=== PATIENT | male | born 1935 | race Caucasian/White ===

== ENCOUNTER 2016-05-26 06:52 | Observation (INO) | payer OTHER, MEDICARE ==
[2016-05-26] MEDS ORDERED: LIDOCAINE 1% 5 ML SDV ONE (07:31)
--- NOTE | 2016-05-26 07:45 | GHP ---
[f rep st] PREOP HISTORY AND PHYSICAL DATE OF ADMISSION: 05/26/2016 ADMISSION DIAGNOSIS: Hematuria with bladder cancer. HISTORY OF PRESENT ILLNESS: This is an 81-year-old gentleman who has had gross hematuria and a recen t cystoscopy revealed that he had a recurrence of a bladder tumor, and he is admitted for TURBT. PAST MEDICAL HISTORY: Significant for gouty arthritis, hypertension, prostate cancer, renal cyst, co mpromised respiratory function, and bladder cancer. PREVIOUS SURGERY: Back surgery, radiation seed implant for prostate cancer and TURBT. MEDICATIONS: 1. Allopurinol. 2. Aspirin. 3. Cimetidine. 4. Furosemide. 5. Glipizide. 6. Glucosamine. 7. Hydralazine. 8. Metoprolol. 9. Pyridostigmine. 10. Prednisone. 11. Prazosin. 12. Spironolactone. 13. Uribel. 14. Warfarin. 15. Zocor. ALLERGIES: No known drug allergies. FAMILY HISTORY: Positive for prostate cancer, hypertension. SOCIAL HISTORY: Moderate alcohol consumption. Former smoker. REVIEW OF SYSTEMS: Negative. CONSTITUTIONAL: He does have shortness of breath and respiratory comp romise and obesity. PHYSICAL EXAM: VITAL SIGNS: In the office, his blood pressure is 162/80, heart rate 73, O2 saturati on on room air was 93%. EARS, EYES, NOSE AND THROAT: Normal. CHEST: Short inspiratory to expirato ry phase. No wheezes. HEART: Regular rate and rhythm. ABDOMEN: Obese. At the present time, he is admitted for TURBT. Indications, complications and option have been discu ssed. Written verbal consent has been obtained, and he is admitted for the above procedure. /[id number]/MODL
[2016-05-26 07:59] LABS: INR 2.24 (0.83-1.16)
[2016-05-26 08:00] LABS: APTT 38.1 SEC (23.0-38.0)
[2016-05-26] MEDS ORDERED: LR 1,000 ML IV ONE (08:06)
[2016-05-26] MEDS ORDERED: LIDOCAINE 1% 5 ML SDV ID PRN (08:06)
[2016-05-26] MEDS ORDERED: LIDOCAINE 2% JELLY 20 ML (UROJECT) ONE (08:26)
[2016-05-26] MEDS ORDERED: ceFAZolin 2 GM/DEXTROSE 100 ML IV ONE (08:30)
[2016-05-26] MEDS ORDERED: fentaNYL 100 MCG/2 ML INJ ONE (08:31)
[2016-05-26] MEDS ORDERED: ALBUMIN 5% 250 ML BOTTLE IV ONE (08:52)
[2016-05-26] MEDS ORDERED: PHENYLEPHRINE 10 MG/ML SDV ONE (08:52)
[2016-05-26] MEDS ORDERED: LIDOCAINE 2% 5 ML SDV ONE (08:52)
[2016-05-26] MEDS ORDERED: epHEDrine SULFATE 10 MG/ML SYR ONE (08:52)
[2016-05-26] MEDS ORDERED: GLYCOPYRROLATE 0.2 MG/1 ML VIAL ONE ×2 (08:52→09:16)
[2016-05-26] MEDS ORDERED: PROPOFOL 200 MG/20 ML VIAL ONE (08:59)
[2016-05-26] MEDS ORDERED: ONDANSETRON 4 MG/2 ML VIAL ONE (09:00)
[2016-05-26] MEDS ORDERED: ONDANSETRON DISINTEGRATING 4 MG TAB PO PRN (09:24)
[2016-05-26] MEDS ORDERED: ACETAMINOPHEN 325 MG TAB PO PRN (09:24)
[2016-05-26] MEDS ORDERED: ONDANSETRON 4 MG/2 ML VIAL IVP PRN (09:24)
--- NOTE | 2016-05-26 09:28 | POSTOPPROG ---
Post Op Note Date of Operation: 05/26/16 Surgeon: Yemi Marcial Anesthesiologist: Brenda Anesthesia: LMA Pre-op Diagnosis: bladder tumor Post-op Diagnosis: same Indication: same Procedure: turbt Findings: bladder tumors Inf/Abcess present in the surg proc area at time of surgery?: No EBL: Minimal Complications: none Drains: Other (arora) Specimen(s): none--dictated
[2016-05-26] MEDS ORDERED: D5W 1/2 NS 1,000 ML IV SCH (09:30)
--- NOTE | 2016-05-26 09:55 | GOP ---
[f rep st] OPERATIVE REPORT DATE OF OPERATION: 05/26/2016 SURGEON: Yemi Marcial MD PREOPERATIVE DIAGNOSIS: Recurrent bladder cancer. POSTOPERATIVE DIAGNOSIS: Recurrent bladder cancer. PROCEDURE PERFORMED: Resection/fulguration of bladder cancers, multiple. FINDINGS: DESCRIPTION OF PROCEDURE: After undergoing general anesthesia, was prepped and draped in normal ster ile fashion. After appropriate time-out, cystoscope was passed into his bladder. He had 1 lesion no miguel at the right side of the bladder neck that was fulgurated and resected. Then, he had multiple le sions in the dome of the right side of the bladder and because the size of him and the distance away, I elected not to resect because I was concerned it may perforate his bladder. They appeared to be s uperficial in nature, so I used a bipolar button and fulgurated them through their entirety and made sure there was no bleeding. At that point, we visualized the rest of the bladder, and there were no residual tumors identified using the 70 degree lens. At that point, the urethral catheter was passed . A 15 cc balloon inflated. He will be admitted for postoperative care with the idea that we will d ischarge him tomorrow if he has no significant postoperative issues. Specimen was not sent because o f the nature described above. COMPLICATIONS: None. DRAINS: Branch catheter. /[id number]/MODL
[2016-05-26] MEDS: PYRIDOSTIGMINE BROMIDE 60 MG TAB PO SCH ×3 (13:41→21:21)
[2016-05-26] MEDS ORDERED: FAMOTIDINE 20 MG TAB PO SCH (21:00)
[2016-05-26] MEDS ORDERED: CIMETIDINE 400 MG PO SCH (21:00)
[2016-05-26] MEDS: PRESERVISION AREDS 2 EYE VITAMIN 1 EACH PO SCH (21:21)
[2016-05-26] MEDS: FUROSEMIDE 40 MG TAB PO SCH (21:23)
[2016-05-27] MEDS: PYRIDOSTIGMINE BROMIDE 60 MG TAB PO SCH ×2 (05:58→12:44)
[2016-05-27] MEDS ORDERED: ALLOPURINOL 100 MG TAB PO SCH (08:00)
[2016-05-27] MEDS ORDERED: METOPROLOL TARTRATE 25 MG TAB PO SCH (08:00)
[2016-05-27] MEDS ORDERED: SPIRONOLACTONE 25 MG TAB PO SCH (08:00)
[2016-05-27 08:37] VITALS: BP 172/87; PULSE 66; RESP 16; TEMP 98; O2SAT 99
--- NOTE | 2016-05-27 08:38 | SOAPPROG ---
SOAP Progress Note Assessment/Plan: Assessment: Bladder cancer Acute POD 1, path pending and plan for DC Plan: DC home 05/27/16 08:37 Subjective: no complaints Objective: Vital Signs Temp Pulse Resp BP Pulse Ox 36.6 C 66 16 172/87 H 99 05/27/16 08:00 05/27/16 08:00 05/27/16 08:00 05/27/16 08:00 05/27/16 08:00 05/26/16 05/27/16 05/28/16 05:59 05:59 05:59 Intake Total 2400 830 Output Total 1200 475 Balance 1200 355 PT 25.0 SEC (12.0-15.0) H 05/26/16 07:35 INR 2.24 (0.83-1.16) H 05/26/16 07:35 Physical Exam - Physical Exam General Appearance: alert Respiratory: No respiratory distress Abdomen: soft Neuro/Psych: alert, oriented x 3 ICD10 Worksheet Patient Problems: Problems Problem Status Diagnosed Bladder cancer Acute Bladder spasm Acute Hematuria Acute Urinary retention Acute Urinary tract infection Acute ERASMO (acute kidney injury) Acute Acute hypoxemic respiratory failure Acute BPH (benign prostatic hyperplasia) Acute CKD (chronic kidney disease) Acute Pneumonia Acute - ICD10 Problem Qualifiers (1) Bladder cancer
[2016-05-27] MEDS: FUROSEMIDE 40 MG TAB PO SCH (08:53)
[2016-05-27] MEDS: PRESERVISION AREDS 2 EYE VITAMIN 1 EACH PO SCH (08:53)
[2016-05-27] MEDS ORDERED: Herbals/Supplements -Info Only PO SCH (09:00)
[2016-05-27] MEDS ORDERED: DOCUSATE SODIUM 100 MG CAP PO SCH (09:00)
[2016-05-27] MEDS ORDERED: MULTIVITAMINS 1 EACH TAB PO SCH (09:00)
[2016-05-27] MEDS ORDERED: ASCORBIC ACID 500 MG TAB PO SCH (09:00)
[2016-05-27] MEDS ORDERED: FERROUS SULFATE 325 MG TAB PO SCH (09:00)
[2016-05-27] MEDS ORDERED: CALCIUM CARB W/VIT D 500 MG TAB PO SCH (09:00)
[2016-05-27] MEDS ORDERED: PRAZOSIN HCL 1 MG CAP PO SCH (09:00)
[2016-05-27] MEDS ORDERED: predniSONE 5 MG TAB PO SCH (09:00)
[2016-05-27] MEDS ORDERED: ASPIRIN 325 MG TAB PO SCH (09:22)
[2016-05-27] MEDS ORDERED: ATORVASTATIN CALCIUM 10 MG TAB PO SCH (21:00)
== END 2016-05-27 12:30 | disposition home or self-care (01) ==
LOC: F3E 06:52 → F1N 13:03
PROVIDERS: ADMIT Specialist; ATTEND Specialist
PROC: 0T5C8ZZ Destruction of Bladder Neck, Via Natural or Artificial Opening Endoscopic (ICD-10-PCS; 2016-05-26)
PROC: 0T5B8ZZ Destruction of Bladder, Via Natural or Artificial Opening Endoscopic (ICD-10-PCS; principal; 2016-05-26 08:30)
DX: C67.9 Malignant neoplasm of bladder, unspecified (principal); R31.0 Gross hematuria; C61 Malignant neoplasm of prostate; N40.1 Benign prostatic hyperplasia with lower urinary tract symptoms; J98.9 Respiratory disorder, unspecified; M10.9 Gout, unspecified; I10 Essential (primary) hypertension; N28.1 Cyst of kidney, acquired; I25.10 Atherosclerotic heart disease of native coronary artery without angina pectoris; I48.91 Unspecified atrial fibrillation; E66.01 Morbid (severe) obesity due to excess calories; Z68.37 Body mass index [BMI] 37.0-37.9, adult; Z87.891 Personal history of nicotine dependence; Z79.01 Long term (current) use of anticoagulants
CPT/HCPCS: 52235; J0690; J2405; J2704; J3010; P9041; J2370

== ENCOUNTER 2016-05-28 11:16 | Inpatient (IN) | payer OTHER, MEDICARE ==
--- NOTE | 2016-05-28 11:22 | EDPHY ---
H & P Time Seen by Provider: 05/28/16 11:22 HPI/ROS: CHIEF COMPLAINT: Cough and short of breath HISTORY OF PRESENT ILLNESS: This 81-year-old man just had urologic surgery was discharged yesterday but started having a cough and shortness of breath yesterday at 6:00 p.m.. He was up all night because of coughing today feels like he can't get a deep breath and can barely move or walk because he feels like he can't get enough oxygen. This is not associated with chest pain or fever. No hemoptysis or sputum production. No leg pain or leg swelling. REVIEW OF SYSTEMS: Eye: no change in vision ENT: no sore throat Cardiac: No palpitations or syncope. Pulmonary: HPI Abdomen: no vomiting, diarrhea, abdominal pain, umbilical hernia which is unchanged. Musculoskeletal: Chronic back pain which is worse, but without weakness or numbness in extremities. Skin: no rash Neuro: no headache Constitutional: no fever : no urinary symptoms A comprehensive 10 point review of systems is otherwise negative aside from elements mentioned in the history of present illness. PAST MEDICAL HISTORY: Includes prostate cancer, hyperlipidemia, atrial fibrillation Social history: Here with family. Nonsmoker. General Appearance: Alert and conversant, cooperative. Eyes: No scleral icterus. ENT, Mouth: Normal mucous membranes. Respiratory: Decreased breath sounds, very faint wheezing. Appears mildly tachypneic. Cardiovascular: Irregular rate and rhythm. Gastrointestinal: Abdomen is soft and non tender. Soft reducible umbilical hernia. Neurological: Alert and oriented x3. Normally conversant. Face symmetric, able to move and feel all extremities but generally very weak. Skin: Warm and dry, no rashes. Musculoskeletal: No peripheral edema and no joint swelling. Psychiatric: Not agitated. Emergency Department course/MDM: Chest x-ray, influenza, DuoNeb. The patient will likely need to be readmitted because of how debilitated he is despite negative influenza testing. He has trouble sitting up in bed without assistance. He was able to get up with assistance and go to the bathroom but is very debilitated. Unsteady on his feet. His chest sounds a little bit better after the nebulizer treatment. Discussed with Abhishek at 1410 for admission, dyspnea and URI, admit for supportive care. At this point I think that an acute bacterial infection is unlikely. INR is 1.67. Pulmonary embolism is considered, but with cough and wheezing I think viral upper respiratory infection is much more likely. Smoking Status: Former smoker Constitutional: Initial Vital Signs Temperature (C) 37.4 C 05/28/16 11:25 Heart Rate 69 05/28/16 11:25 Respiratory Rate 20 05/28/16 11:25 Blood Pressure 171/97 H 05/28/16 11:25 O2 Sat (%) 93 05/28/16 11:25 O2 Delivery Mode Room Air O2 (L/minute) 2 Allergies/Adverse Reactions: No Known Allergies Allergy (Verified 05/18/16 10:13) Home Medications: Medication Instructions Recorded Aspirin [Aspirin 325 mg (*)] 325 mg PO MOWEFR 02/19/15 Calcium Carb W/Vit D [Calcium Carb 500 mg PO DAILY 02/19/15 W/Vit D 500/200 (*)] Cimetidine 400 mg PO HS 02/19/15 Furosemide [Lasix 40 MG (*)] 40 mg PO BID 02/19/15 Multivitamins [Multivitamin (*)] 1 each PO DAILY 02/19/15 Prazosin HCl [Minipress 1mg (*)] 2 mg PO DAILY 02/19/15 Pyridostigmine [place] [Mestinon 60 mg PO QID 02/19/15 60mg (*)] Simvastatin [Zocor] 20 mg PO HS 02/19/15 Spironolactone [Aldactone 25 MG 25 mg PO DAILY@08 02/19/15 (*)] Allopurinol [Allopurinol 100 MG 100 mg PO DAILY@03/17/16 (*)] Ascorbic Acid [Vitamin C 500 mg 500 mg PO DAILY 03/17/16 (*)] Docusate Sodium [Colace 100 MG (*)] 100 mg PO DAILY 03/17/16 Ferrous Sulfate [Ferrous Sulf 325 325 mg PO DAILY 03/17/16 MG (*)] Herbals/Supplements -Info Only 1 ea PO DAILY #0 03/17/16 Metoprolol Tartrate [Lopressor 25 25 mg PO DAILY@03/17/16 mg (*)] hydrALAZINE [Apresoline 50 mg (*)] 50 mg PO TID 03/17/16 predniSONE 5 mg PO DAILY 03/17/16 C/E/Zn/Cu/OM3/DHA/EPA/LUT/ZEAX 1 each PO BID 05/11/16 [Preservision Areds 2 Softgel] Medical Decision Making - Diagnostics EKG Interpretation: 12-lead EKG interpreted by me; official reading is in trace master. My interpretation is sinus rhythm at rate 54, no acute ischemic changes. Imaging: Lumbar spine x-ray viewed independently by myself is negative for acute fracture other injury. Chest x-ray viewed independently by myself shows cardiomegaly without failure or infiltrates. Differential Diagnosis: Differential diagnosis considered for shortness of breath including but not limited to pulmonary infectious process, COPD, asthma, pulmonary embolus and congestive heart failure. - Data Points Laboratory Results: Laboratory Results 05/28/16 11:30 05/28/16 11:30 05/28/16 05/28/16 11:44 11:30 WBC 10.27 H 10^3/uL (3.80-9.50) RBC 4.68 10^6/uL (4.40-6.38) Hgb 12.4 L g/dL (13.7-17.5) Hct 39.2 L % (40.0-51.0) MCV 83.8 fL (81.5-99.8) MCH 26.5 L pg (27.9-34.1) MCHC 31.6 L g/dL (32.4-36.7) RDW 16.1 H % (11.5-15.2) Plt Count 180 10^3/uL (150-400) MPV 11.7 fL (8.7-11.7) Neut % (Auto) 81.1 H % (39.3-74.2) Lymph % (Auto) 5.1 L % (15.0-45.0) Bibb % (Auto) 10.1 % (4.5-13.0) Eos % (Auto) 2.7 % (0.6-7.6) Baso % (Auto) 0.4 % (0.3-1.7) Nucleat RBC Rel Count 0.0 % (0.0-0.2) Absolute Neuts (auto) 8.33 H 10^3/uL (1.70-6.50) Absolute Lymphs (auto) 0.52 L 10^3/uL (1.00-3.00) Absolute Monos (auto) 1.04 H 10^3/uL (0.30-0.80) Absolute Eos (auto) 0.28 10^3/uL (0.03-0.40) Absolute Basos (auto) 0.04 10^3/uL (0.02-0.10) Absolute Nucleated RBC 0.00 10^3/uL (0-0.01) Immature Gran % 0.6 % (0.0-1.1) Immature Gran # 0.06 10^3/uL (0.00-0.10) PT 19.6 H SEC (12.0-15.0) INR 1.65 H (0.83-1.16) Sodium 140 mEq/L (134-144) Potassium 4.8 mEq/L (3.5-5.2) Chloride 100 mEq/L (97-110) Carbon Dioxide 30 mEq/l (22-31) Anion Gap 10 mEq/L (8-16) BUN 55 H mg/dL (7-23) Creatinine 2.8 H mg/dL (0.7-1.3) Estimated GFR 22 Glucose 87 mg/dL (70-100) Calcium 9.6 mg/dL (8.5-10.4) Troponin I 0.025 ng/mL (0-0.034) NT-Pro-B Natriuret Pep 845 H pg/mL (0-450) Influenza Typ A,B (DFA) NEGATIVE FOR FLU (NEGATIVE) Medications Given: Discontinued Medications Albuterol/Ipratropium (Duoneb) 3 ml IH EDNOW ONE Stop: 05/28/16 12:20 Last Admin: 05/28/16 12:35 Dose: 3 ml Departure - Departure Disposition: [facility] Inpatient Acute Clinical Impression: Cough Dyspnea Qualifiers: Dyspnea type: unspecified Qualifier Code: (R06.00) Dyspnea, unspecified Condition: Good
[2016-05-28 11:46] LABS: % IMMATURE GRANULYOCYTES 0.6 % (0.0-1.1); ABSOLUTE IMMATURE GRANULOCYTES 0.06 10^3/uL (0.00-0.10); ADD DIFF? NO; ADD MORPH? NO; ADD SCAN? NO; ATYPICAL LYMPHOCYTE FLAG 0 (0-99); FRAGMENT RBC FLAG 0 (0-99); HEMATOCRIT 39.2 % (40.0-51.0); HEMOGLOBIN 12.4 g/dL (13.7-17.5); LEFT SHIFT FLG 0 (0-99); LIPEMIA HEMOLYSIS FLAG 80 (0-99); MEAN CELL HEMOGLOBIN 26.5 pg (27.9-34.1); MEAN CELL HEMOGLOBIN CONCENTR. 31.6 g/dL (32.4-36.7); MEAN CELL VOLUME 83.8 fL (81.5-99.8); MEAN PLATELET VOLUME 11.7 fL (8.7-11.7); PLATELET CLUMPS FLAG 10 (0-99); PLATELET COUNT 180 10^3/uL (150-400); RED BLOOD CELL COUNT 4.68 10^6/uL (4.40-6.38); RED CELL DISTRIBUTION WIDTH 16.1 % (11.5-15.2)
[2016-05-28 11:53] LABS: ANION GAP 10 mEq/L (8-16); CALCIUM 9.6 mg/dL (8.5-10.4); CARBON DIOXIDE 30 mEq/l (22-31); CHLORIDE 100 mEq/L (97-110); CREATININE 2.8 mg/dL (0.7-1.3); GLOMERULAR FILTRATION RATE 22; GLUCOSE 87 mg/dL (70-100); POTASSIUM 4.8 mEq/L (3.5-5.2); SODIUM 140 mEq/L (134-144)
[2016-05-28] MEDS ORDERED: IPRATROPIUM/ALBUTEROL 3 ML DEYVIAL IH ONE (12:19)
--- NOTE | 2016-05-28 12:29 | DX ---
PA and Lateral Chest Clinical Indications: Shortness of breath in an 81-year-old male. Comparison: PA and lateral chest and CT scan of the Chest February 26, 2015. Findings: No focal pulmonary consolidation is identified. Peribronchial thickening is seen. There is hyperexpansion seen with flattening of the hemidiaphragms noted. Prominent pericardial fat pads are seen bilaterally. The heart is mildly enlarged. Pulmonary vascular ity is normal. No pleural effusions are seen. Pleural surfaces and bony thorax are negative for acut e abnormality. Spinal degenerative changes are stable. Impression: 1. Suspect COPD/chronic bronchitis. 2. Probable low-grade congestive heart failure without pulmonary edema.
[2016-05-28 12:37] LABS: INR 1.65 (0.83-1.16); PROTIME(PATIENT) 19.6 SEC (12.0-15.0)
[2016-05-28 12:55] LABS: TROPONIN I 0.025 ng/mL (0-0.034)
--- NOTE | 2016-05-28 14:17 | CPEKG ---
Heart Rate: 54 RR Interval: 1111 P-R Interval: 128 QRSD Interval: 76 QT Interval: 424 QTC Interval: 402 P [place]: 36 QRS [place]: 24 T Wave [place]: 50 EKG Severity - NORMAL ECG - EKG Impression: SINUS RHYTHM Electronically Signed By: Edmond Adan 28-May-2016 16:11:30
--- NOTE | 2016-05-28 14:18 | DX ---
Lumbar Spine (AP and Lateral) Clinical Indications: Back pain in an 81-year-old male; comparison to the prior study October 16, 2014. Findings: Alignment is normal and no fractures are seen. Multilevel degenerative changes are noted w ith disk space loss and bony hypertrophic changes seen throughout the lumbar spine. Degenerative butler ges are also seen in the lower thoracic region. Abnormalities are stable in appearance. Aortic calcif ication is seen without aneurysmal dilatation. Implanted seeds are noted in the prostate bed. Impression: 1. Multilevel lumbar spinal degenerative changes are seen. 2. See above report for additional findings.
[2016-05-28] MEDS ORDERED: ONDANSETRON 4 MG/2 ML VIAL IVP PRN (14:44)
[2016-05-28] MEDS ORDERED: ONDANSETRON DISINTEGRATING 4 MG TAB PO PRN (14:44)
[2016-05-28] MEDS ORDERED: oxyCODONE IR 5 MG TAB PO PRN (14:44)
[2016-05-28] MEDS ORDERED: IPRATROPIUM/ALBUTEROL 3 ML DEYVIAL IH PRN (14:48)
--- NOTE | 2016-05-28 15:53 | GHP ---
[f rep st] HISTORY AND PHYSICAL DATE OF ADMISSION: 05/28/2016 HISTORY OF PRESENT ILLNESS: The patient is a pleasant 81-year-old gentleman who had a transurethral resection of bladder tumor performed on the of this month by Dr. Yemi Marcial. He was discharged on postoperative day #1, feeling well. Last night, he began to develop low back pain, as well as a dry cough. He has had no fever or chills. He has no pleuritic pain. He has no history of VTE. He takes Coumadin, but it was for stroke prophylaxis for atrial fibrillation, but it has been discontinued. He has had a bowel movement since surgery. He feels in general weak with shortness of breath and dyspnea on exertion, as well as low back pain. He has not had fecal or urinary incontinence. He has not had chest pain. He does not have a history of angina. He has a low appetite, but has been drinking fluids okay. REVIEW OF SYSTEMS: A complete 10-point review of systems was conducted and was negative, except as noted in the HPI. PAST MEDICAL HISTORY: 1. Atrial fibrillation on chronic Coumadin. 2. History of bladder tumor. 3. Morbid obesity. 4. Chronic kidney disease with baseline creatinine in the mid 2s. 5. Diabetes. 6. Anemia. 7. Suspected myasthenia gravis. 8. Hematuria urinary retention secondary to bladder tumors. ALLERGIES: No known drug allergies. MEDICATIONS: Preliminary home medications list includes prednisone 5 daily, hydralazine 50 t.i.d., spironolactone 20 daily, simvastatin, Mestinon, prazosin , multivitamin, metoprolol, Lasix, iron sulfate, docusate, calcium carbonate, aspirin, ascorbic acid, and allopurinol. SOCIAL HISTORY: He quit smoking more than 60 years ago. His and children are present at the bedside. No tobacco. Minimal alcohol. FAMILY HISTORY: His children are healthy. PHYSICAL EXAM: VITAL SIGNS: Temperature 37.4, blood pressure 171/97, pulse 69 , breathing 20 times a minute, 93% on room air. GENERAL: In no acute distress. Obese. HEENT: Sclerae are anicteric. Oropharynx is clear. Mucous membranes are moist. NECK: Supple without lymphadenopathy or JVD. LUNGS: Clear to auscultation with scattered expiratory wheezes with good air movement. HEART: S1, S2. Bradycardic. ABDOMEN: Soft, obese, nontender, nondistended. EXTREMITIES: Lower extremities show trace edema bilaterally. Calves are nontender. SKIN: Without rash. NEUROLOGIC: Exam shows negative straight leg raises bilaterally. Dorsiflexion and plantarflexion are 5/5 bilaterally. SKIN: Without rash. LABS: White count 10.3 (which is down from 11), hematocrit 39 (baseline), platelets 180. INR is 1.65. Sodium 140, potassium 4.8, chloride 100, bicarb 30, BUN 55, creatinine 2.8, glucose 87. Troponin 0.025, which is about where he lives. BNP is 845, also similar for him. His influenza is negative. Chest x-ray, interpreted by me, shows poor quality film with no focal infiltrate. Lumbar spine film shows multilevel degenerative changes. EKG, interpreted by me, shows sinus bradycardia at 54 with normal axis and intervals and no ST or T-wave changes. I have discussed the case with Dr. Edmond Adan in the Emergency Department. ASSESSMENT AND PLAN: This is an 81-year-old gentleman who comes in with generalized weakness and cough and shortness of breath, postoperative day #2 from transurethral resection of bladder tumor. 1. Weakness. I suspect this is multifactorial, largely driven by the one/two combination of surgery and a viral illness. I will have PT and OT see him. I think the patient is not significantly anemic. This does not appear to be on acute coronary syndrome. 2. Shortness of breath. The patient has an elevated creatinine, making scanning for pulmonary embolism not safe at this point in time. This does not seem really like a pulmonary embolism. The patient has wheezes and upper respiratory infection symptoms. Warfarin will be restarted. He is not tachycardic. I will go ahead and provide him with Mucinex and DuoNeb. Antibiotics are not indicated. 3. Indeterminate troponin of recent surgery. We will cycle his troponins. His EKG does not have ischemic changes. 4. Back pain. He has no neurologic signs, no fever. We will follow. I will have PT and OT see him. He had a film, but I will not perform an MRI at this time. 5. Prophylaxis. He has been started on warfarin. Will follow his INR daily. DISPOSITION: Inpatient status. /[id number]/MODL MTDD
[2016-05-28] MEDS: ACETAMINOPHEN 500 MG TAB PO SCH ×2 (16:09→20:24)
[2016-05-28] MEDS: guaiFENesin 600 MG TAB.ER PO SCH ×2 (16:10→20:24)
[2016-05-28] MEDS: PYRIDOSTIGMINE BROMIDE 60 MG TAB PO SCH ×2 (17:37→20:24)
[2016-05-28] MEDS: FAMOTIDINE 20 MG TAB PO SCH (20:24)
[2016-05-28] MEDS: PRESERVISION AREDS 2 EYE VITAMIN 1 EACH PO SCH (20:24)
[2016-05-28] MEDS: PRAZOSIN HCL 1 MG CAP PO SCH (20:24)
[2016-05-28] MEDS: ATORVASTATIN CALCIUM 10 MG TAB PO SCH (20:24)
[2016-05-29 05:06] LABS: % IMMATURE GRANULYOCYTES 0.4 % (0.0-1.1); ABSOLUTE IMMATURE GRANULOCYTES 0.03 10^3/uL (0.00-0.10); ADD DIFF? NO; ADD MORPH? NO; ADD SCAN? NO; ATYPICAL LYMPHOCYTE FLAG 10 (0-99); FRAGMENT RBC FLAG 20 (0-99); HEMATOCRIT 36.1 % (40.0-51.0); HEMOGLOBIN 11.3 g/dL (13.7-17.5); LEFT SHIFT FLG 0 (0-99); LIPEMIA HEMOLYSIS FLAG 80 (0-99); MEAN CELL HEMOGLOBIN 26.1 pg (27.9-34.1); MEAN CELL HEMOGLOBIN CONCENTR. 31.3 g/dL (32.4-36.7); MEAN CELL VOLUME 83.4 fL (81.5-99.8); MEAN PLATELET VOLUME 11.7 fL (8.7-11.7); PLATELET CLUMPS FLAG 10 (0-99); PLATELET COUNT 181 10^3/uL (150-400); RED BLOOD CELL COUNT 4.33 10^6/uL (4.40-6.38); RED CELL DISTRIBUTION WIDTH 16.1 % (11.5-15.2)
[2016-05-29 05:17] LABS: INR 1.43 (0.83-1.16); PROTIME(PATIENT) 17.4 SEC (12.0-15.0)
[2016-05-29 05:25] LABS: ANION GAP 11 mEq/L (8-16); CALCIUM 8.8 mg/dL (8.5-10.4); CARBON DIOXIDE 25 mEq/l (22-31); CHLORIDE 100 mEq/L (97-110); CREATININE 2.9 mg/dL (0.7-1.3); GLOMERULAR FILTRATION RATE 21; GLUCOSE 77 mg/dL (70-100); POTASSIUM 4.3 mEq/L (3.5-5.2); SODIUM 136 mEq/L (134-144)
[2016-05-29] MEDS: PYRIDOSTIGMINE BROMIDE 60 MG TAB PO SCH ×4 (08:31→21:22)
[2016-05-29] MEDS: guaiFENesin 600 MG TAB.ER PO SCH ×2 (08:31→21:21)
[2016-05-29] MEDS: MULTIVITAMINS 1 EACH TAB PO SCH (08:31)
[2016-05-29] MEDS: DOCUSATE SODIUM 100 MG CAP PO SCH (08:31)
[2016-05-29] MEDS: PRESERVISION AREDS 2 EYE VITAMIN 1 EACH PO SCH ×2 (08:31→21:21)
[2016-05-29] MEDS: CALCIUM CARB W/VIT D 500 MG TAB PO SCH (08:32)
[2016-05-29] MEDS: ALLOPURINOL 100 MG TAB PO SCH (08:32)
[2016-05-29] MEDS: ASCORBIC ACID 500 MG TAB PO SCH (08:32)
[2016-05-29] MEDS: FERROUS SULFATE 325 MG TAB PO SCH (08:32)
[2016-05-29] MEDS: predniSONE 5 MG TAB PO SCH (08:32)
[2016-05-29] MEDS: METOPROLOL TARTRATE 25 MG TAB PO SCH (08:32)
[2016-05-29] MEDS ORDERED: Herbals/Supplements -Info Only PO SCH (09:00)
--- NOTE | 2016-05-29 13:56 | HOSPPROG ---
Hospitalist Progress Note Assessment/Plan: Patient is an 81-year-old gentleman who had a recent transurethral resection was bladder tumor performed on May [address] Marcial. He was feeling well on discharge. Last night he developed low back pain as well as a dry cough he had no fever chills he was admitted for further care. Today is my 1st encounter with the patient. Chart reviewed. #. Weakness * most likely secondary to recent surgery * hemoglobin hematocrit are stable * physical therapy and occupational therapy have seen patient/ recommending home care #. chronic kidney disease * creatinine 2.9/this is close to his baseline #. atrial fibrillation * Coumadin had been discontinued due to recent surgery * patient had surgery on the /last time the urologist's held his anticoagulation for 5 days * will resume Coumadin tomorrow #. diabetes * glucose is stable # shortness of breath with associated cough * slightly increase in troponin this afternoon but does not indicate any type of ischemia * patient is on diuretics will resume these * placed on scheduled duo nebs * chest x-ray does not show any focal infiltrate #. constipation * will add bowel protocol #. back pain / x-ray shows nothing acute * is on scheduled Tylenol * Lidoderm patch initiated * it is likely secondary to arthritis in his back #. Dvt prophylaxis: Heparin tid Subjective: patient is complaining of ongoing shortness of breath. His other complaint is a dry hacking cough. Objective: Vital Signs Temp Pulse Resp BP Pulse Ox 36.9 C 53 L 16 143/78 H 92 05/29/16 11:01 05/29/16 11:01 05/29/16 11:01 05/29/16 11:01 05/29/16 11:01 Laboratory Results 05/29/16 04:17 05/29/16 04:17 PT 17.4 SEC (12.0-15.0) H 05/29/16 04:17 INR 1.43 (0.83-1.16) H 05/29/16 04:17 - Physical Exam Constitutional: chronically ill appearing, obese, uncomfortable, No not in pain (back) Ears, Nose, Mouth, Throat: hard of hearing Cardiovascular: regular rate and rhythym Respiratory: no respiratory distress, reduced air movement ( bibasilar) Gastrointestinal: other ( abdomen large and round) Skin: warm Musculoskeletal: generalized weakness Neurologic: AAOx3 Psychiatric: interacting appropriately ICD10 Worksheet Patient Problems: Problems Problem Status Diagnosed Bladder spasm Acute Cough Acute Dyspnea Acute Hematuria Acute Urinary retention Acute Urinary tract infection Acute ERASMO (acute kidney injury) Acute Acute hypoxemic respiratory failure Acute BPH (benign prostatic hyperplasia) Acute Bladder cancer Acute CKD (chronic kidney disease) Acute Pneumonia Acute
[2016-05-29] MEDS: ACETAMINOPHEN 500 MG TAB PO SCH ×3 (15:04→21:21)
[2016-05-29] MEDS: LIDOCAINE 5% 1 EA PATCH TD SCH (15:07)
[2016-05-29] MEDS ORDERED: BISACODYL 10 MG SUPP PR PRN (15:44)
[2016-05-29] MEDS ORDERED: LACTULOSE 20 GM/30 ML UDCUP PO PRN (15:44)
[2016-05-29] MEDS ORDERED: IPRATROPIUM/ALBUTEROL 3 ML DEYVIAL ONE (15:52)
[2016-05-29] MEDS: IPRATROPIUM/ALBUTEROL 3 ML DEYVIAL IH SCH ×2 (15:58→23:55)
[2016-05-29] MEDS: POLYETHYLENE GLYCOL 3350 17 GM PKT PO SCH (17:40)
[2016-05-29] MEDS: FUROSEMIDE 40 MG TAB PO SCH ×2 (17:40→21:21)
[2016-05-29] MEDS: PRAZOSIN HCL 1 MG CAP PO SCH (21:21)
[2016-05-29] MEDS: ATORVASTATIN CALCIUM 10 MG TAB PO SCH (21:21)
[2016-05-29] MEDS: HEPARIN 5,000 UNIT/0.5 ML SYR SC SCH (21:21)
[2016-05-29] MEDS: SENNOSIDES/DOCUSATE SODIUM TAB PO SCH (21:22)
[2016-05-29] MEDS: FAMOTIDINE 20 MG TAB PO SCH (21:22)
[2016-05-30 05:26] LABS: ANION GAP 12 mEq/L (8-16); CALCIUM 9.2 mg/dL (8.5-10.4); CARBON DIOXIDE 26 mEq/l (22-31); CHLORIDE 99 mEq/L (97-110); CREATININE 2.7 mg/dL (0.7-1.3); GLOMERULAR FILTRATION RATE 23; GLUCOSE 89 mg/dL (70-100); POTASSIUM 4.2 mEq/L (3.5-5.2); SODIUM 137 mEq/L (134-144)
[2016-05-30] MEDS: ACETAMINOPHEN 500 MG TAB PO SCH ×3 (06:05→21:58)
[2016-05-30] MEDS: HEPARIN 5,000 UNIT/0.5 ML SYR SC SCH ×2 (06:06→14:57)
[2016-05-30] MEDS: IPRATROPIUM/ALBUTEROL 3 ML DEYVIAL IH SCH ×4 (06:17→22:09)
[2016-05-30] MEDS: LIDOCAINE 5% 1 EA PATCH TD SCH (09:17)
[2016-05-30] MEDS: METOPROLOL TARTRATE 25 MG TAB PO SCH (09:18)
[2016-05-30] MEDS: POLYETHYLENE GLYCOL 3350 17 GM PKT PO SCH (09:18)
[2016-05-30] MEDS: CALCIUM CARB W/VIT D 500 MG TAB PO SCH (09:19)
[2016-05-30] MEDS: DOCUSATE SODIUM 100 MG CAP PO SCH (09:19)
[2016-05-30] MEDS: PRESERVISION AREDS 2 EYE VITAMIN 1 EACH PO SCH ×2 (09:19→21:57)
[2016-05-30] MEDS: PYRIDOSTIGMINE BROMIDE 60 MG TAB PO SCH ×4 (09:19→21:57)
[2016-05-30] MEDS: SENNOSIDES/DOCUSATE SODIUM TAB PO SCH ×2 (09:19→21:57)
[2016-05-30] MEDS: MULTIVITAMINS 1 EACH TAB PO SCH (09:19)
[2016-05-30] MEDS: SPIRONOLACTONE 25 MG TAB PO SCH (09:20)
[2016-05-30] MEDS: FUROSEMIDE 40 MG TAB PO SCH ×2 (09:20→14:54)
[2016-05-30] MEDS: guaiFENesin 600 MG TAB.ER PO SCH ×2 (09:20→21:58)
[2016-05-30] MEDS: ASCORBIC ACID 500 MG TAB PO SCH (09:20)
[2016-05-30] MEDS: FERROUS SULFATE 325 MG TAB PO SCH (09:20)
[2016-05-30] MEDS: predniSONE 5 MG TAB PO SCH (09:20)
[2016-05-30] MEDS: ALLOPURINOL 100 MG TAB PO SCH (09:20)
--- NOTE | 2016-05-30 12:10 | HOSPPROG ---
Hospitalist Progress Note Assessment/Plan: Patient is an 81-year-old gentleman who had a recent transurethral resection was bladder tumor performed on May [address] Marcial. He was feeling well on discharge. Last night he developed low back pain as well as a dry cough he had no fever chills he was admitted for further care. #. Weakness * most likely secondary to recent surgery * hemoglobin hematocrit are stable * physical therapy and occupational therapy have seen patient/ recommending home care #. chronic kidney disease * creatinine 2.7/this is close to his baseline #. atrial fibrillation * Coumadin had been discontinued due to recent surgery * patient had surgery on the /last time the urologist's held his anticoagulation for 5 days * will resume Coumadin soon/RN to verify with Dr Marcial's office #. diabetes * glucose is stable # shortness of breath with associated cough * slightly increase in troponin * placed on scheduled duo nebs * chest x-ray does not show any focal infiltrate #. constipation * will add bowel protocol #. back pain / x-ray shows nothing acute * is on scheduled Tylenol * Lidoderm patch initiated * it is likely secondary to arthritis in his back * Jamir says this is much better today #. Dvt prophylaxis: Heparin tid #. Plan: Jamir says he is tired, feeling poorly, has no energy/ told him I would re-evaluate him later today. Subjective: Jamir is feeling more fatigued, has no energy today/ appetite is poorer than his baseline. Objective: Vital Signs Temp Pulse Resp BP Pulse Ox 36.3 C 58 L 14 123/62 H 93 05/30/16 11:06 05/30/16 11:06 05/30/16 11:06 05/30/16 11:06 05/30/16 11:06 Laboratory Results 05/29/16 04:17 05/30/16 04:27 05/29/16 05/30/16 05/31/16 05:59 05:59 05:59 Intake Total 300 Balance 300 PT 17.4 SEC (12.0-15.0) H 05/29/16 04:17 INR 1.43 (0.83-1.16) H 05/29/16 04:17 - Physical Exam Constitutional: not in pain, chronically ill appearing, obese Eyes: PERRL Ears, Nose, Mouth, Throat: hearing normal Cardiovascular: regular rate and rhythym, edema (bilateral lower extremity) Respiratory: no respiratory distress, reduced air movement (bibasilar), other ( loose cough) Gastrointestinal: normoactive bowel sounds, other (large and round) Skin: warm Musculoskeletal: no muscle tenderness Neurologic: AAOx3 Psychiatric: interacting appropriately ICD10 Worksheet Patient Problems: Problems Problem Status Diagnosed Bladder spasm Acute Cough Acute Dyspnea Acute Hematuria Acute Urinary retention Acute Urinary tract infection Acute ERASMO (acute kidney injury) Acute Acute hypoxemic respiratory failure Acute BPH (benign prostatic hyperplasia) Acute Bladder cancer Acute CKD (chronic kidney disease) Acute Pneumonia Acute
[2016-05-30] MEDS ORDERED: ASPIRIN 325 MG TAB PO SCH (15:58)
[2016-05-30] MEDS ORDERED: WARFARIN SODIUM 5 MG TAB PO SCH (16:00)
[2016-05-30] MEDS: FAMOTIDINE 20 MG TAB PO SCH (21:57)
[2016-05-30] MEDS: ATORVASTATIN CALCIUM 10 MG TAB PO SCH (21:57)
[2016-05-30] MEDS: PRAZOSIN HCL 1 MG CAP PO SCH (21:57)
[2016-05-30] MEDS: PATCH REMOVAL 1 EA PATCH TD SCH ×2 (22:03)
[2016-05-30 22:42] VITALS: TEMP 98.3
[2016-05-31] MEDS: IPRATROPIUM/ALBUTEROL 3 ML DEYVIAL IH SCH (05:28)
[2016-05-31 05:43] LABS: INR 1.27 (0.83-1.16); PROTIME(PATIENT) 15.9 SEC (12.0-15.0)
[2016-05-31 05:49] LABS: ANION GAP 15 mEq/L (8-16); CARBON DIOXIDE 24 mEq/l (22-31); CHLORIDE 97 mEq/L (97-110); CREATININE 3.2 mg/dL (0.7-1.3); GLOMERULAR FILTRATION RATE 19; GLUCOSE 79 mg/dL (70-100); POTASSIUM 4.1 mEq/L (3.5-5.2); SODIUM 136 mEq/L (134-144)
[2016-05-31] MEDS: ACETAMINOPHEN 500 MG TAB PO SCH (05:58)
[2016-05-31 09:07] VITALS: BP 123/72; PULSE 66; RESP 14; O2SAT 92
[2016-05-31] MEDS: SENNOSIDES/DOCUSATE SODIUM TAB PO SCH (10:10)
[2016-05-31] MEDS: SPIRONOLACTONE 25 MG TAB PO SCH (10:10)
[2016-05-31] MEDS: PRESERVISION AREDS 2 EYE VITAMIN 1 EACH PO SCH (10:10)
[2016-05-31] MEDS: guaiFENesin 600 MG TAB.ER PO SCH (10:10)
[2016-05-31] MEDS: ASCORBIC ACID 500 MG TAB PO SCH (10:10)
[2016-05-31] MEDS: FERROUS SULFATE 325 MG TAB PO SCH (10:10)
[2016-05-31] MEDS: DOCUSATE SODIUM 100 MG CAP PO SCH (10:10)
[2016-05-31] MEDS: MULTIVITAMINS 1 EACH TAB PO SCH (10:10)
[2016-05-31] MEDS: FUROSEMIDE 40 MG TAB PO SCH (10:11)
[2016-05-31] MEDS: PYRIDOSTIGMINE BROMIDE 60 MG TAB PO SCH ×2 (10:11→11:28)
[2016-05-31] MEDS: ALLOPURINOL 100 MG TAB PO SCH (10:11)
[2016-05-31] MEDS: CALCIUM CARB W/VIT D 500 MG TAB PO SCH (10:11)
[2016-05-31] MEDS: predniSONE 5 MG TAB PO SCH (10:11)
[2016-05-31] MEDS: METOPROLOL TARTRATE 25 MG TAB PO SCH (10:12)
[2016-05-31] MEDS: LIDOCAINE 5% 1 EA PATCH TD SCH (10:17)
[2016-05-31] MEDS: POLYETHYLENE GLYCOL 3350 17 GM PKT PO SCH (10:17)
--- NOTE | 2016-05-31 13:09 | GDS ---
[f rep st] DISCHARGE SUMMARY DISCHARGE DIAGNOSES: 1. Weakness. 2. Chronic kidney disease. 3. Atrial fibrillation. 4. Diabetes. 5. Constipation. 6. Back pain. STUDIES AND PROCEDURES DONE: Lumbar spine x-ray. PHYSICAL EXAM: GENERAL: The patient is alert and oriented, in no acute distress. VITAL SIGNS: Afe brile 36.8, pulse is 66, respiratory rate 14, blood pressure is 123/72, saturating 92% on room air. I have seen and evaluated the patient on the day of discharge. HOSPITAL COURSE: The patient is an 81-year-old male who presented to the hospital with complaints of back pain. He was evaluated and diagnosed with: 1. Weakness. This is multifactorial. He was evaluated by Physical Therapy and Occupational Therapy during this hospitalization and has been cleared to be discharged home without home care. His weakn ess has significantly improved. 2. Chronic kidney disease. He is close to baseline. I have informed the patient that he needs to r emain hydrated in the outpatient setting. He does understand this. 3. Atrial fibrillation. His Coumadin has been reinitiated during this hospital course. He will fol low up in the outpatient setting and have his INR evaluated. 4. Diabetes. This is well controlled. 5. Shortness of breath with associated cough. This has resolved. 6. Constipation. This has resolved. 7. Back pain. X-rays were done during this hospitalization. This has resolved and was likely secon pratibha to the patient's arthritis and recent surgical intervention with decreased mobility. DISPOSITION: The patient will be discharged home independently. Follow up will be in the outpatient setting with Dr. Marcial his urologist as well as his primary care physician for an INR evaluation. TIME SPENT: I spent greater than 35 minutes in the care, coordination, and management of this patien t's disposition. DISCHARGE MEDICATIONS: Please refer to EMR form. I have not adjusted the patient's previously presc ribed home medications to the best of my knowledge. /[id number]/MODL
[2016-05-31] MEDS ORDERED: WARFARIN SODIUM 5 MG TAB PO SCH (16:00)
== END 2016-05-31 12:16 | disposition home or self-care (01) | DRG 948 ==
LOC: EDUNIT# → F3E 15:45
PROVIDERS: ADMIT Internal Medicine; ATTEND Internal Medicine
DX: R53.1 Weakness (principal); N18.9 Chronic kidney disease, unspecified; I48.91 Unspecified atrial fibrillation; E11.9 Type 2 diabetes mellitus without complications; K59.00 Constipation, unspecified; M54.9 Dorsalgia, unspecified; Z79.01 Long term (current) use of anticoagulants; R06.02 Shortness of breath; Z85.46 Personal history of malignant neoplasm of prostate; E78.5 Hyperlipidemia, unspecified; Z87.891 Personal history of nicotine dependence; Z98.890 Other specified postprocedural states
CPT/HCPCS: 97116-GP; 97161-GP; 97162-GP; 97165-GO; G8978-GP-CI; G8979-GP-CI; G8980-GP-CI; G8987-GO-CI; G8988-GO-CH

== ENCOUNTER 2016-10-20 08:49 | Day surgery (SDC) | payer OTHER, MEDICARE ==
--- NOTE | 2016-10-19 12:45 | GHP ---
[f rep st] PREOP HISTORY AND PHYSICAL ADMISSION DIAGNOSIS: Bladder cancer. HISTORY OF PRESENT ILLNESS: This is an 81-year-old gentleman who has had recurring bladder cancer. He is admitted for TURBT. PAST MEDICAL HISTORY: Bladder cancer treatments, gout, hypertension, prostate cancer. PAST SURGICAL HISTORY: Radiation seed implant for prostate cancer, TURBT, back surgery. MEDICATIONS: Include allopurinol, aspirin, cimetidine, CoQ10, furosemide, glipizide, glucosamine, hydralazine, metoprolol, potassium chloride, prazosin, simvastatin, spironolactone, and warfarin. ALLERGIES: None. FAMILY HISTORY: Positive for prostate cancer and hypertension. SOCIAL HISTORY: Mild alcohol consumption daily. Former tobacco smoker. REVIEW OF SYSTEMS: Negative cardiac. He does have respiratory shortness of breath. Denies any GI or anomalies. PHYSICAL EXAMINATION: VITAL SIGNS: Stable. CHEST: Clear. HEART: Regular rate and rhythm. ABDOMEN: Normal with obesity. EXTREMITIES: Lower extremities normal with mild peripheral edema. SKIN: Warm and dry. NEUROLOGIC : Oriented to time, person, and place. PLAN: At the present time, he is to undergo transurethral resection of a bladder tumor. /[id number]/MODL MTDD
[2016-10-20] MEDS ORDERED: LIDOCAINE 2% JELLY 20 ML (UROJECT) ONE (09:43)
[2016-10-20] MEDS ORDERED: LIDOCAINE 1% 5 ML SDV ID PRN (09:44)
[2016-10-20] MEDS ORDERED: LR 1,000 ML IV ONE (09:44)
[2016-10-20 09:49] LABS: INR 1.61 (0.83-1.16); PROTIME(PATIENT) 19.2 SEC (12.0-15.0)
[2016-10-20] MEDS ORDERED: CEFAZOLIN 2 GM/DEXTROSE/100 ML BAG IV ONE (10:39)
[2016-10-20] MEDS ORDERED: fentaNYL 100 MCG/2 ML INJ ONE (10:46)
[2016-10-20] MEDS ORDERED: PROPOFOL/EMULSION 500 MG/50 ML BOTTLE IV ONE (10:46)
[2016-10-20] MEDS ORDERED: ceFAZolin 2 GM/DEXTROSE 100 ML IV ONE (11:00)
[2016-10-20] MEDS ORDERED: PHENYLEPHRINE HCL 100 MCG/ML SYR ONE (11:05)
[2016-10-20] MEDS ORDERED: LIDOCAINE 2% 5 ML SDV ONE (11:05)
--- NOTE | 2016-10-20 12:10 | GOP ---
[f rep st] OPERATIVE REPORT DATE OF OPERATION: 10/20/2016 SURGEON: Yemi Marcial MD ANESTHESIA: General anesthesia. PREOPERATIVE DIAGNOSIS: Bladder cancer. POSTOPERATIVE DIAGNOSIS: Bladder cancer. PROCEDURE PERFORMED: Transurethral resection of bladder tumor. FINDINGS: DESCRIPTION OF PROCEDURE: Prepped and draped in normal sterile fashion and he had 3 tumors identifi ed in his bladder removed. Remaining part of bladder was normal. There was no perforation of the b ladder. Hemostasis was provided with electrocautery. Specimens sent to pathology. Uro-Jet placed in urethra and an 18 Branch catheter placed. He will be discharged home if medically he can tolerate it. Have follow up with me in 3 months. /[id number]/MODL
[2016-10-20] MEDS ORDERED: PYRIDOSTIGMINE BROMIDE 60 MG TAB PO SCH ×2 (16:00→23:00)
[2016-10-20] MEDS ORDERED: CIMETIDINE 400 MG PO SCH ×2 (21:00→23:00)
[2016-10-20] MEDS ORDERED: PRAZOSIN HCL 1 MG CAP PO SCH ×2 (21:00→23:00)
[2016-10-20] MEDS ORDERED: PRESERVISION AREDS2 FORMULA EYE VIT 1 EACH PO SCH (21:00)
[2016-10-20] MEDS ORDERED: NON-FORMULARY NEW DRUG (Simvastatin [Zocor] 20 MG) PO SCH ×2 (21:00→23:00)
[2016-10-21] MEDS ORDERED: METOPROLOL TARTRATE 25 MG TAB PO SCH (08:00)
[2016-10-21] MEDS ORDERED: ASPIRIN 325 MG TAB PO SCH (08:00)
[2016-10-21] MEDS ORDERED: SPIRONOLACTONE 25 MG TAB PO SCH (08:00)
[2016-10-21] MEDS ORDERED: MULTIVITAMINS 1 EACH TAB PO SCH (09:00)
[2016-10-21] MEDS ORDERED: CALCIUM CARB W/VIT D 500 MG TAB PO SCH (09:00)
[2016-10-21] MEDS ORDERED: ASCORBIC ACID 500 MG TAB PO SCH (09:00)
[2016-10-21] MEDS ORDERED: ALLOPURINOL 100 MG TAB PO SCH (09:00)
[2016-10-21] MEDS ORDERED: Herbals/Supplements -Info Only PO SCH (09:00)
[2016-10-21] MEDS ORDERED: predniSONE 5 MG TAB PO SCH (09:00)
[2016-10-21] MEDS ORDERED: FERROUS SULFATE 325 MG TAB PO SCH (09:00)
[2016-10-21] MEDS ORDERED: CIMETIDINE 400 MG PO SCH (21:00)
[2016-10-21] MEDS ORDERED: ATORVASTATIN CALCIUM 10 MG TAB PO SCH (21:00)
== END 2016-10-20 13:15 | disposition home or self-care (01) ==
LOC: F1N 08:49 → UNDOADMIN 08:49 → FSGY 08:49 → EDSTATUS 10:30 → PREOBSVTOIN 10:32 → FSGY 13:15
PROVIDERS: ATTEND Specialist
PROC: 0TBB8ZZ Excision of Bladder, Via Natural or Artificial Opening Endoscopic (ICD-10-PCS; principal; 2016-10-20 10:30)
DX: C67.9 Malignant neoplasm of bladder, unspecified (principal); I48.91 Unspecified atrial fibrillation; I10 Essential (primary) hypertension; J44.9 Chronic obstructive pulmonary disease, unspecified; M10.9 Gout, unspecified; Z87.891 Personal history of nicotine dependence; Z85.46 Personal history of malignant neoplasm of prostate
CPT/HCPCS: J0690; J2370; J2704; J3010

== ENCOUNTER → 2017-06-02 | Outpatient (CLI) | payer OTHER, MEDICARE | LOC: BHFA 15:30 | PROVIDERS: ATTEND Internal Medicine Cardiovascular Disease | DX: L97.821 Non-pressure chronic ulcer of other part of left lower leg limited to breakdown of skin (principal) ==